=== PATIENT | male | born 1970 | race Caucasian/White ===

== ENCOUNTER 2017-06-20 15:57 | Emergency (ER) | payer SELFPAY ==
[~2017-06-20 15:57] MED LIST: ASPI325T PO; METO25TA3 PO; OMEP20TA PO
== END 2017-06-20 18:45 | disposition left against medical advice (07) ==
LOC: NEDAMB 15:57
DX: R07.9 Chest pain, unspecified (principal); Z53.21 Procedure and treatment not carried out due to patient leaving prior to being seen by health care provider
CPT/HCPCS: 99281

== ENCOUNTER 2017-06-20 16:00 | Observation (INO) | payer SELFPAY ==
[2017-06-20] MEDS ORDERED: ACETAMINOPHEN 500 MG CPLT PO PRN (16:45)
[2017-06-20] MEDS ORDERED: ONDANSETRON HCL 4 MG/2 ML VIAL IV PRN (16:45)
[2017-06-20] MEDS ORDERED: cloNIDine HCL 0.1 MG TAB PO PRN (16:45)
[2017-06-20] MEDS ORDERED: ALPRAZolam 0.25 MG TAB PO PRN (16:45)
[2017-06-20] MEDS ORDERED: SODIUM CHLORIDE 0.9% FLUSH 5 ML FLUSH IVF PRN (16:45)
[2017-06-20 16:54] VITALS: BP 110/70; PULSE 65; RESP 18; TEMP 98.1; O2SAT 94
--- NOTE | 2017-06-20 16:56 | HHI.HP ---
HPI Primary Care Physician Non-Staff Chief Complaint Chest pain History of Present Illness This is a 47-year-old male that presents to ED in [place] and then transferred to chest pain center via ambulance to evaluate his chest discomfort. He states that he woke up about 845 this morning with the left jaw and left chest pain that he describes as being sharp lasting about 5 minutes. Mildly short of breath. No nausea or diaphoresis. He then went to work. While he is driving to work the discomfort reoccurred also lasting about 5 minutes. At that time he decided to go to the ED to evaluate his discomfort. He currently does not have the discomfort. He states he had a similar episode 4 months ago and was admitted at a hospital in [place] and had labs and EKGs and discharge. He also states he had a similar episode about 8-9 months ago at the same hospital having a stress test that was normal. He is concerned however stating he has strong history of coronary artery disease in his family. He also had a heart catheterization that was normal without was in his early 30s. Review of Systems General: Patient denies fevers, chills recent, and recent travel HEENT: Patient denies headache, sore throat, difficulty swallowing. Cardiovascular: Has the chest discomfort as mentioned above. Denies sensation of heart beating rapidly or irregularly. No syncope. Denies diaphoresis. Respiratory: He was mildly short of breath. Denies inspirational chest discomfort. Denies coughing wheezing or hemoptysis. GI: Patient denies nausea, vomiting, diarrhea, abdominal pain, bloody stools. Musculoskeletal: Patient denies joint pain or edema. Denies calf pain or edema. Neurovascular: Patient denies numbness, tingling, weakness in extremities. Denies headache. Endocrine: Denies polyuria and polydipsia. Hematologic: Denies easy bruising. Skin: Denies rash or itching. Past Family Social History Allergies: Coded Allergies: No Known Allergies (Unverified , 06/20/17) Past Medical History Hypertension and hyperlipidemia however he takes no medication for hyperlipidemia. History of GERD. Denies diabetes and known CAD. Past Surgical History Cardiac catheterization in his early 30s without intervention. Appendectomy. Reported Medications Reported Meds & Active Scripts Active Reported Metoprolol Tartrate 25 Mg Tab 25 Mg PO BID Aspirin 325 Mg Tab 325 Mg PO DAILY Omeprazole 20 Mg Tab 20 Mg PO HS Active Ordered Medications Current Medications Medications (Trade) Dose Ordered Sig/Cari Route Start Time Stop Time Status Last Admin (Lopressor) 25 mg BID PO 06/20/17 21:00 UNV Non-Formulary Medication 20 mg HS PO 06/20/17 21:00 UNV (NS Flush) 2 ml UNSCH PRN IVF 06/20/17 16:45 UNV (NS Flush) 2 ml BID IVF 06/20/17 21:00 UNV (Tylenol) 500 mg Q4H PRN PO 06/20/17 16:45 UNV ([place] 7.5-325 Mg) 1 tab Q4H PRN PO 06/20/17 16:45 UNV (Zofran Inj) 4 mg Q6H PRN IV 06/20/17 16:45 UNV (Xanax) 0.25 mg Q8H PRN PO 06/20/17 16:45 UNV (Aspirin) 325 mg DAILY PO 06/21/17 09:00 UNV (Catapres) 0.1 mg Q4H PRN PO 06/20/17 16:45 UNV Family History His father had an MT at 42. He's had multiple cardiac surgeries. He has 4 brothers all of which have coronary disease with either CABG or stenting. Social History Patient is a lifetime nonsmoker. Denies illicit drugs. Has occasional alcohol. Physical Exam Physical Exam GENERAL: This is a well-nourished, well-developed patient, in no apparent distress. Patient speaks in clear complete sentences. Patient is pleasant. HEENT: Head is atraumatic and normocephalic. Neck is supple without lymphadenopathy and trachea is midline. No JVD or carotid bruits. CARDIOVASCULAR: Regular rate and rhythm without murmurs, gallops, or rubs. RESPIRATORY: Clear to auscultation. Breath sounds equal bilaterally. No wheezes , rales, or rhonchi. Chest wall is nontender. No use of accessory muscles. GASTROINTESTINAL: Abdomen is nontender, nondistended. Abdomen soft. No obvious pulsatile mass or bruit. No CVA tenderness. Strong femoral pulses bilaterally. Normal bowel sounds in all quadrants. MUSCULOSKELETAL: Patient is moving upper and lower extremities freely. No calf tenderness or edema, no Homans sign. Strong pulses in upper and lower extremities. NEUROLOGICAL: Patient is alert and oriented. Cranial nerves 2-12 are grossly intact. No focal deficits and speech is clear. SKIN: No rash and turgor is normal. Imaging Chest x-ray reveals nothing acute. Course Initial EKG is sinus rhythm without significant ST segment depressions or elevations. Assessment and Plan Assessment and Plan * Chest pain: Patient will continue to have serial cardiac enzymes and EKGs for ruling out purposes. He will be seen by Dr. Ayers of cardiology in the chest pain center and have a nuclear ETT if he does rule out. He'll be discharged home if his stress test is nonischemic. * Hypertension: Continue current medication. * Hyperlipidemia: Patient was counseled on importance of getting on medication for hyperlipidemia and have appropriate follow-up lipid panels and LFTs. * GERD: Continue current medication. Patient is stable at this time. He is agreeable to this plan. Davonte Moody Jun 20, 2017 16:56
[2017-06-20 18:48] LABS: CREATINE KINASE 54 U/L (39-308)
[2017-06-20 20:47] LABS: CREATINE KINASE 55 U/L (39-308)
[2017-06-20 20:48] VITALS: BP 136/64; PULSE 70; RESP 17; TEMP 98.2; O2SAT 95
[2017-06-20] MEDS: SODIUM CHLORIDE 0.9% FLUSH 5 ML FLUSH IVF SCH (21:00)
[2017-06-20] MEDS ORDERED: NON-FORMULARY DRUG (Omeprazole 20 MG) PO SCH (21:00)
[2017-06-20] MEDS ORDERED: PANTOPRAZOLE SOD 20 MG DELAYED RELEASE TAB PO SCH (21:00)
[2017-06-20] MEDS: METOPROLOL TARTRATE 25 MG TAB PO SCH (21:20)
[2017-06-20 22:33] VITALS: O2SAT 94
[2017-06-20 23:55] VITALS: PULSE 68
[2017-06-21] VITALS: BP 116/59; PULSE 68; RESP 17; TEMP 98.7; O2SAT 95
[2017-06-21] MEDS: ACETAMINOPHEN/HYDROcodone 325 MG/7.5 MG TAB PO PRN ×2 (00:47→08:50)
[2017-06-21 03:44] VITALS: PULSE 62
[2017-06-21 03:48] VITALS: BP 112/67; PULSE 69; RESP 16; TEMP 98.3; O2SAT 95
[2017-06-21 07:33] VITALS: BP 135/77; PULSE 72; RESP 20; TEMP 98.3; O2SAT 95
[2017-06-21 08:04] VITALS: O2SAT 94
[2017-06-21] MEDS: SODIUM CHLORIDE 0.9% FLUSH 5 ML FLUSH IVF SCH (08:49)
[2017-06-21] MEDS ORDERED: ASPIRIN 325 MG TAB PO SCH (09:00)
--- NOTE | 2017-06-21 12:23 | RADRPT ---
EXAM DATE/TIME: 06/21/2017 09:19 [facility] COMPARISON: No previous studies available for comparison. INDICATIONS : Left sided chest pain. Angina DOSE: 27.4 mCi Tc99m Myoview at stress 8.1 mCi Tc99m Myoview at rest REST HEART RATE: 83 BPM TARGET HEART RATE: 147 BPM MAX HEART RATE: 155 BPM REST BLOOD PRESSURE: 130/88 mmHg MAX BLOOD PRESSURE: 202/82 mmHg EJECTION FRACTION: 70% MEDICAL HISTORY : Hypertension. SURGICAL HISTORY : Cardiac cath. ENCOUNTER: Initial ACUITY: 1 day PAIN SCALE: 2/10 LOCATION: Left chest TECHNIQUE: The patient underwent upright treadmill exercise in the chest pain center. Continuous ECG tracing wa s monitored during stress. Gated SPECT imaging was performed after stress, and conventional SPECT im aging was performed at rest. The examination was performed on a SPECT/CT scanner, both attenuation-c orrected and non-corrected datasets were reviewed. FINDINGS: DISTRIBUTION: The maximum perfused segment at stress is in the anterior wall. PERFUSION STUDY: The pattern of perfusion at stress is within normal limits. GATED STUDY: There is intact wall motion and thickening without hypokinetic or dyskinetic segments. CONCLUSION: Normal examination. RISK CATEGORY: Low (<1% Annual Mortality Rate) Ck Mascorro MD on June 21, 2017 at 12:21 Board Certified Radiologist. This report was verified electronically.
[2017-06-21] MEDS: METOPROLOL TARTRATE 25 MG TAB PO SCH (12:57)
--- NOTE | 2017-06-21 13:29 | TR ---
Date Performed: 06/21/2017 Time Performed: 10:22:46 DOCTOR: Brent Ayers DRUG LIST: CLINICAL HISTORY: REASON FOR TEST: REASON FOR ENDING: OBSERVATION: CONCLUSION: NUC ETT HOA PROTOCOL. NO CP. PATIENT WAS SOB.Maximum XW=868 % Max HR Achieved=90.0 % Maximum ON=173/88 Total Exercise Time=9:08 COMMENTS: Conclusion: Normal treadmill exercise. No evidence of ischemia.
--- NOTE | 2017-06-21 13:53 | HHI.DCPOC ---
Discharge Care Plan Goals to Promote Your Health * To prevent worsening of your condition and complications * To maintain your health at the optimal level Directions to Meet Your Goals Take your medications as prescribed Follow your dietary instruction Follow activity as directed Keep your appointments as scheduled Take your immunizations and boosters as scheduled If your symptoms worsen call your PCP, if no PCP go to Urgent Care Center or Emergency Room Smoking is Dangerous to Your Health. Avoid second hand smoke Call the 24-hour hour crisis hotline for domestic abuse at Brent Ayers MD Jun 21, 2017 13:53
== END 2017-06-21 14:33 | disposition home or self-care (01) ==
LOC: NEDDLT 16:00 → NEDA 16:17 → NEPGCP 16:31
PROVIDERS: ADMIT Internal Medicine Cardiovascular Disease; ATTEND Internal Medicine Cardiovascular Disease
DX: R07.9 Chest pain, unspecified (principal); I10 Essential (primary) hypertension; E78.5 Hyperlipidemia, unspecified; K21.9 Gastro-esophageal reflux disease without esophagitis; R06.02 Shortness of breath; Z82.49 Family history of ischemic heart disease and other diseases of the circulatory system; Z98.61 Coronary angioplasty status; R94.31 Abnormal electrocardiogram [ECG] [EKG]
CPT/HCPCS: 71010; 78452; 80053; 82550; 83735; 83880; 84484; 85025; 85379; 85610; 85730; 93005; 93017; 99285; A9502; G0378